=== PATIENT | male | born 1960 | race Caucasian/White ===

== ENCOUNTER 2021-10-26 11:37 | Inpatient (IN) | payer OTHER ==
[~2021-10-26] VITALS: Ht 182.9 cm; Wt 107.4 kg
[2021-10-26] VITALS (8 sets, daily range): BP systolic 124–143; BP diastolic 83–94
[2021-10-26] MEDS ORDERED: HEPARIN DRIP/D5W 100UNITS/ML 250 ML IV SCH (12:00)
[2021-10-26 12:33] LABS: Basophils # (auto) 0.1 10 ^3/uL (0-0.2); Basophils % (auto) 1.1 % (0.0-2.0); Eosinophils # (auto) 0.3 10 ^3/uL (0-0.8); Eosinophils % (auto) 4.6 % (0.0-7.0); Hemoglobin 15.3 g/dL (13.5-17.5); Lymphocytes # (auto) 1.8 10 ^3/uL (0.4-5.4); Lymphocytes % (auto) 26.5 % (10.0-50.0); Mean Corpuscular Hemoglobin 29.6 pg (28.0-32.0); Mean Corpuscular Hgb Conc. 34.8 g/dL (32.0-36.0); Monocytes # (auto) 0.6 10 ^3/uL (0-1.3); Monocytes % (auto) 8.1 % (0.0-12.0); Neutrophils # (auto) 4.2 10 ^3/uL (1.6-8.6); Neutrophils % (auto) 59.7 % (37.0-80.0); Nucleated Red Blood Cells % 0.1 %; Red Blood Cells 5.18 10^6/uL (4.5-5.90); Red Cell Distribution Width 13.8 % (11.8-14.3)
[2021-10-26 12:52] LABS: INR 1.08 (0.9-1.15)
[2021-10-26 12:57] LABS: Albumin 3.7 g/dL (3.4-5.0); Calcium 8.9 mg/dL (8.5-10.1)
[2021-10-26 13:00] LABS: Bilirubin, Total 1.1 mg/dL (0.2-1.0); Total Protein 6.9 g/dL (6.4-8.2)
[2021-10-26] MEDS ORDERED: LIDOCAINE 2%HCL (LOCAL ANESTH.) INJ 10ml MDV ONE ×2 (14:16→14:41)
[2021-10-26] MEDS ORDERED: HEPARIN IN NS 1000Units/500mL 1,500 ML ONE (14:16)
[2021-10-26] MEDS ORDERED: IODIXANOL 320MG/ML 100ML BTL IV ONE ×2 (14:16→15:32)
[2021-10-26] MEDS ORDERED: ANGIOMAX 250 MG VIAL IV ONE (14:39)
[2021-10-26] MEDS ORDERED: fentaNYL CITRATE 100 MCG/2 ML VL ONE (14:40)
[2021-10-26] MEDS ORDERED: VERAPAMIL 2.5MG/ML INJ 2ML VIAL IV ONE (14:40)
[2021-10-26] MEDS ORDERED: SODIUM CHL 0.9% 0 ML ONE (14:40)
[2021-10-26] MEDS ORDERED: HEPARIN SODIUM (PORCINE) 5000 UNITS/ML 1ML VIAL ONE ×2 (14:40→15:25)
[2021-10-26] MEDS ORDERED: MIDAZOLAM HCL 2MG/2ML 2ml VIAL (1mg/ml) ONE (14:40)
[2021-10-26] MEDS ORDERED: HYDROcodone-ACET 5/325MG TAB PO PRN ×2 (15:00→15:15)
[2021-10-26] MEDS ORDERED: DOCUSATE SOD 100 MG CAP PO PRN ×2 (15:00→15:15)
[2021-10-26] MEDS ORDERED: ONDANSETRON HCL 4 MG/2 ML VIAL IV PRN ×2 (15:00→15:15)
[2021-10-26] MEDS ORDERED: NITROGLYCERIN 0.4 MG SL TAB SL PRN ×2 (15:00→15:15)
[2021-10-26] MEDS ORDERED: MORPHINE SULFATE INJ 2 MG/ml SYRG IV PRN ×4 (15:00→15:15)
[2021-10-26 15:24] LABS: Cholesterol 195 mg/dL (< 200); Triglycerides 82 mg/dL (< 150)
[2021-10-26 15:26] LABS: HDL Cholesterol 37 mg/dL (40-59); LDL Cholesterol 145 mg/dL (< 100)
[2021-10-26] MEDS ORDERED: ASPirin 81 mg TAB ONE (16:04)
[2021-10-26] MEDS ORDERED: TICAGRELOR 90 MG TAB ONE (16:04)
[2021-10-26] MEDS ORDERED: ASPI1TAB19 PO (16:23)
[2021-10-26] MEDS ORDERED: ATEN-60 PO (16:23)
[2021-10-26] MEDS ORDERED: LOSA-39 PO (16:23)
[2021-10-26] MEDS: SODIUM CHLOR 0.9% PF (SALINE LOCK) 10ML VIAL/SYR IV SCH (21:45)
[2021-10-26] MEDS: TICAGRELOR 90 MG TAB PO SCH (21:45)
[2021-10-26] MEDS: CARVEDILOL 3.125 MG TAB PO SCH (21:46)
[2021-10-26] MEDS ORDERED: ATORVASTATIN 20 MG TAB PO SCH (22:00)
[2021-10-26] MEDS ORDERED: SODIUM CHLOR 0.9% PF (SALINE LOCK) 10ML VIAL/SYR IV SCH (22:00)
[2021-10-27 05:00] VITALS: BP 130/87
[2021-10-27 05:52] LABS: BUN/Creatinine Ratio 16.3; Calcium 8.7 mg/dL (8.5-10.1); Potassium 3.8 mmol/L (3.5-5.1)
[2021-10-27] MEDS: SODIUM CHLOR 0.9% PF (SALINE LOCK) 10ML VIAL/SYR IV SCH (06:00)
[2021-10-27 09:10] VITALS: BP 138/90
[2021-10-27] MEDS: CARVEDILOL 3.125 MG TAB PO SCH (09:12)
[2021-10-27] MEDS: TICAGRELOR 90 MG TAB PO SCH (09:16)
[2021-10-27] MEDS ORDERED: ASPirin 81 mg TAB PO SCH (10:00)
[2021-10-27] MEDS ORDERED: LISINOPRIL 5 MG TAB PO SCH (10:00)
[2021-10-27 12:11] VITALS: BP 134/93
[2021-10-27] MEDS ORDERED: ATEN-60 PO (15:24)
[2021-10-27] MEDS ORDERED: TICA90TA PO (15:24)
[2021-10-27] MEDS ORDERED: ATOR20TA50 PO (15:24)
[2021-10-27] MEDS ORDERED: ASPI1TAB19 PO (15:24)
[2021-10-27] MEDS ORDERED: LOSA-39 PO (15:24)
== END 2021-10-27 16:05 | disposition home or self-care (01) | DRG 246 ==
LOC: ER 11:37 → EDBD 11:37 → ER 14:31 → TELE 14:52 → TELE-EAST 18:40
PROVIDERS: ADMIT Internal Medicine; ATTEND Internal Medicine
PROC: 027136Z Dilation of Coronary Artery, Two Arteries with Three Drug-eluting Intraluminal Devices, Percutaneous Approach (ICD-10-PCS; principal; 2021-10-26)
PROC: 4A023N7 Measurement of Cardiac Sampling and Pressure, Left Heart, Percutaneous Approach (ICD-10-PCS; 2021-10-26)
PROC: B211YZZ Fluoroscopy of Multiple Coronary Arteries using Other Contrast (ICD-10-PCS; 2021-10-26)
PROC: B215YZZ Fluoroscopy of Left Heart using Other Contrast (ICD-10-PCS; 2021-10-26)
DX: I21.4 Non-ST elevation (NSTEMI) myocardial infarction (principal); I50.31 Acute diastolic (congestive) heart failure; I25.10 Atherosclerotic heart disease of native coronary artery without angina pectoris; E66.9 Obesity, unspecified; Z68.32 Body mass index [BMI] 32.0-32.9, adult; E78.5 Hyperlipidemia, unspecified; Z20.822 Contact with and (suspected) exposure to COVID-19; I11.0 Hypertensive heart disease with heart failure
CPT/HCPCS: 36415; 71045; 80048; 80053; 80061; 83036; 84484; 85025; 85610; 85730; 92928; 92929; 93005; 93306; 93458; 96365; 99152; 99153; 99291; C1874; C1887; G0378; J2001; J2250; Q9967